=== PATIENT | female | born 2005 | race Caucasian/White ===

== ENCOUNTER → 2024-04-06 | Outpatient (CLI) | payer OTHER ==
[~2024-04-06] MED LIST: AMOX50SU PO; Bactroban22 GM TOP; CEPH250SUA PO; CODACEE120 PO; RXAMOX250S PO
[2024-04-06 13:32] LABS: Source, Urine Clean Catch
[2024-04-06 14:14] LABS: Appearance, Urine Clear (Clear); Bilirubin, Urine Neg (Neg); Blood, Urine Neg (Neg); Color, Urine Yellow (P-Yellow); Glucose Qualitative, Urine Neg (Neg); Ketones, Urine Neg (Neg); Leukocyte Esterase, Urine Neg (Neg); Nitrite, Urine Neg (Neg); Protein, Urine 1+ (Neg); Urobilinogen, Urine NORM (Normal)
== END | disposition home or self-care (01) ==
LOC: LAB 13:29 → LAB SHORT 13:29
PROVIDERS: Registered Nurse Community Health
DX: O09.30 Supervision of pregnancy with insufficient antenatal care, unspecified trimester (principal)
CPT/HCPCS: 87086

== ENCOUNTER → 2024-04-07 | Outpatient (CLI) | payer OTHER ==
[2024-04-07 19:32] LABS: BASOPHILS ABSOLUTE AUTO 0.04 K/mm3 (0.00-0.23); BASOPHILS PERCENT AUTO 0 % (0-2); EOSINOPHILS PERCENT AUTO 1 % (0-6); Hemoglobin 13.7 g/dL (11.5-16.0); IMMATURE GRAN ABSOLUTE AUTO 0.05 K/mm3 (0.00-0.10); IMMATURE GRAN PERCENT AUTO 0 % (0-1); LYMPHOCYTES ABSOLUTE AUTO 3.36 K/mm3 (0.84-5.20); LYMPHOCYTES PERCENT AUTO 27 % (21-46); MONOCYTES ABSOLUTE AUTO 0.65 K/mm3 (0.16-1.47); MONOCYTES PERCENT AUTO 5 % (4-13); Mean Corpuscular HGB 30.8 pg (26.0-34.0); Mean Corpuscular HGB Conc 35.1 g/dL (31.5-36.5); Mean Corpuscular Volume 88 fL (80-100); Mean Platelet Volume 10.7 fL (9.1-12.4); NEUTROPHILS ABSOLUTE AUTO 8.11 K/mm3 (1.96-9.15); NEUTROPHILS PERCENT AUTO 66 % (41-73); Platelet Count 343 K/mm3 (150-400); RDW Coefficient Variation 12.8 % (11.7-14.2); RDW Standard Deviation 41.1 fL (35.1-46.3); Red Blood Cell Count 4.45 M/mm3 (3.80-5.20); White Blood Cell Count 12.31 K/mm3 (4.00-11.30)
[2024-04-09 17:04] LABS: HEPATITIS B SURFACE ANTIGEN Negative (Negative)
[2024-04-10 10:35] LABS: HEPATITIS C AB CIA INTERP Negative (Negative); HEPATITIS C ANTIBODY CIA INDEX 0.05 IV
[2024-04-10 11:57] LABS: HIV 1,2 COMBO ANTIGEN/ANTIBODY Negative (Negative)
[2024-04-10 20:33] LABS: APTIMA MEDIA TYPE Urine; C. TRACHOMATIS BY TMA Negative (Negative); N. GONORRHOEAE BY TMA Negative (Negative); SPECIMEN SOURCE Urine
== END ==
LOC: LAB SHORT 17:54 → LAB 17:54
PROVIDERS: Registered Nurse Community Health
DX: Z34.92 Encounter for supervision of normal pregnancy, unspecified, second trimester (principal)
CPT/HCPCS: 84443; 86803; 87340; 87389; 87491; 87591

== ENCOUNTER → 2024-07-07 | Outpatient (CLI) | payer OTHER ==
[2024-07-07 14:33] LABS: Hematocrit 34.8 % (33.0-51.0); Hemoglobin 12.2 g/dL (11.5-16.0)
== END ==
LOC: LAB SHORT 11:36 → LAB 11:36
PROVIDERS: Registered Nurse Community Health
DX: Z34.92 Encounter for supervision of normal pregnancy, unspecified, second trimester (principal)
CPT/HCPCS: 82950; 85014; 85018

== ENCOUNTER → 2024-09-10 | Outpatient (CLI) | payer OTHER ==
[~2024-09-10] MED LIST changes: +AMOCLA875 PO
== END ==
LOC: LAB SHORT 15:45 → LAB 15:45
DX: Z34.93 Encounter for supervision of normal pregnancy, unspecified, third trimester (principal)
CPT/HCPCS: 87081; 87150

== ENCOUNTER 2024-10-07 06:21 | Inpatient (IN) | payer OTHER ==
[~2024-10-07] VITALS: Ht 170.2 cm; Wt 106.8 kg
[2024-10-07] VITALS (15 sets, daily range): BP systolic 115–145; BP diastolic 67–90
[2024-10-07] MEDS ORDERED: Misoprostol 200 MCG Tab PR PRN (06:50)
[2024-10-07] MEDS ORDERED: Oxytocin 10 Unit / ML Vial IM PRN (06:50)
[2024-10-07] MEDS ORDERED: ePHEDrine Sulfate 50 MG/ML 1ML Injection XX PRN (06:50)
[2024-10-07] MEDS ORDERED: Lactated Ringer's 1,000 ML IV PRN ×3 (06:50)
[2024-10-07] MEDS ORDERED: OXYTOCIN/RINGER'S LACTATE 500 ML IV PRN (06:50)
[2024-10-07] MEDS ORDERED: Methylergonovine Maleate 0.2MG / ML 1ML Amp IM PRN (06:50)
[2024-10-07] MEDS ORDERED: Misoprostol 200 MCG Tab BC PRN (06:50)
[2024-10-07] MEDS ORDERED: FentaNYL 2mcg/ml-Bup 0.1% Epd 250 ML EPI PRN (06:50)
[2024-10-07] MEDS ORDERED: Ondansetron HCl 2 MG / ML 2ML Vial IV PRN (06:50)
[2024-10-07] MEDS ORDERED: Carboprost Tromethamine 250 MCG/ML 1ML Amp IM PRN (06:50)
[2024-10-07] MEDS ORDERED: Acetaminophen 500 MG Tab PO PRN (06:55)
[2024-10-07] MEDS ORDERED: Calcium Carbonate 500 MG Tab Chew PO PRN (06:55)
[2024-10-07] MEDS ORDERED: Tranexamic Acid 100 ML IV PRN (06:55)
[2024-10-07] MEDS ORDERED: FentaNYL Citrate 50 MCG/ML 2 ML Injection IV PRN (07:00)
[2024-10-07 08:19] LABS: BASOPHILS ABSOLUTE AUTO 0.03 K/mm3 (0.00-0.23); BASOPHILS PERCENT AUTO 0 % (0-2); EOSINOPHILS ABSOLUTE AUTO 0.12 K/mm3 (0.00-0.68); EOSINOPHILS PERCENT AUTO 1 % (0-6); Hemoglobin 13.4 g/dL (11.5-16.0); IMMATURE GRAN ABSOLUTE AUTO 0.08 K/mm3 (0.00-0.10); IMMATURE GRAN PERCENT AUTO 1 % (0-1); LYMPHOCYTES PERCENT AUTO 21 % (21-46); MONOCYTES ABSOLUTE AUTO 0.86 K/mm3 (0.16-1.47); MONOCYTES PERCENT AUTO 6 % (4-13); Mean Corpuscular HGB 30.2 pg (26.0-34.0); Mean Corpuscular HGB Conc 34.4 g/dL (31.5-36.5); Mean Corpuscular Volume 88 fL (80-100); Mean Platelet Volume 10.7 fL (9.1-12.4); NEUTROPHILS PERCENT AUTO 71 % (41-73); Platelet Count 263 K/mm3 (150-400); RDW Coefficient Variation 12.9 % (11.7-14.2); RDW Standard Deviation 41.3 fL (35.1-46.3); Red Blood Cell Count 4.43 M/mm3 (3.80-5.20); White Blood Cell Count 13.89 K/mm3 (4.00-11.30)
[2024-10-07] MEDS ORDERED: OXYTOCIN/RINGER'S LACTATE 500 ML IV SCH (19:25)
[2024-10-07] MEDS ORDERED: Lactated Ringer's 1,000 ML IV SCH (19:25)
[2024-10-08] VITALS (40 sets, daily range): BP systolic 95–141; BP diastolic 50–87
[2024-10-08] MEDS ORDERED: Methylergonovine Maleate 0.2MG / ML 1ML Amp IM PRN (11:00)
[2024-10-08] MEDS ORDERED: Measles/Mumps/Rubella Vaccine 0.5 ML Vial SC ONE (11:00)
[2024-10-08] MEDS ORDERED: Misoprostol 200 MCG Tab PR PRN (11:05)
[2024-10-08] MEDS ORDERED: Acetaminophen/Codeine 300-30 mg PO PRN (11:05)
[2024-10-08] MEDS ORDERED: Acetaminophen 325 MG TABLET PO PRN (11:05)
[2024-10-08] MEDS ORDERED: Diphth,Pertuss(Acell),Tet Vac 0.5 ML VIAL IM ONE (11:05)
[2024-10-08] MEDS ORDERED: Oxytocin 10 Unit / ML Vial IM ONE (11:05)
[2024-10-08] MEDS ORDERED: Witch Hazel/Glycerin PADS TOP PRN (11:05)
[2024-10-08] MEDS ORDERED: Benzocaine Topical Anesthetic Spray 60GM TOP PRN (11:05)
[2024-10-08] MEDS ORDERED: Lanolin Cream TOP PRN (11:10)
[2024-10-08] MEDS ORDERED: Docusate Sodium 100 MG Cap PO PRN (11:10)
[2024-10-08] MEDS ORDERED: FLU VACC TS2024-25(6MOS UP)/PF 45 MCG/0.5 ML SYRINGE IM SCH (11:10)
[2024-10-08] MEDS ORDERED: OXYTOCIN/RINGER'S LACTATE 500 ML IV SCH (11:10)
[2024-10-08] MEDS ORDERED: Ketorolac Tromethamine 30mg Vial IV PRN (11:10)
[2024-10-08] MEDS ORDERED: Lactated Ringer's 1,000 ML IV SCH (11:10)
[2024-10-08] MEDS ORDERED: Ibuprofen 400 MG Tab PO PRN (11:10)
[2024-10-09 00:13] VITALS: BP 121/59
[2024-10-09 04:48] VITALS: BP 100/56
[2024-10-09 06:51] LABS: BASOPHILS ABSOLUTE AUTO 0.06 K/mm3 (0.00-0.23); BASOPHILS PERCENT AUTO 0 % (0-2); EOSINOPHILS ABSOLUTE AUTO 0.15 K/mm3 (0.00-0.68); EOSINOPHILS PERCENT AUTO 1 % (0-6); Hematocrit 34.7 % (33.0-51.0); Hemoglobin 12.1 g/dL (11.5-16.0); IMMATURE GRAN ABSOLUTE AUTO 0.11 K/mm3 (0.00-0.10); IMMATURE GRAN PERCENT AUTO 1 % (0-1); LYMPHOCYTES ABSOLUTE AUTO 3.39 K/mm3 (0.84-5.20); LYMPHOCYTES PERCENT AUTO 22 % (21-46); MONOCYTES ABSOLUTE AUTO 1.19 K/mm3 (0.16-1.47); MONOCYTES PERCENT AUTO 8 % (4-13); Mean Corpuscular HGB Conc 34.9 g/dL (31.5-36.5); Mean Corpuscular Volume 89 fL (80-100); Mean Platelet Volume 10.7 fL (9.1-12.4); NEUTROPHILS ABSOLUTE AUTO 10.29 K/mm3 (1.96-9.15); NEUTROPHILS PERCENT AUTO 68 % (41-73); Platelet Count 228 K/mm3 (150-400); RDW Standard Deviation 42.4 fL (35.1-46.3); White Blood Cell Count 15.19 K/mm3 (4.00-11.30)
[2024-10-09] MEDS ORDERED: Measles/Mumps/Rubella Vaccine 0.5 ML Vial SC ONE (07:50)
[2024-10-09 07:59] VITALS: BP 134/72
[2024-10-09] MEDS ORDERED: Prenatal Vit/FE Fumarate/FA 1 Tab PO SCH (09:00)
[2024-10-09 11:13] VITALS: BP 114/63
[2024-10-09] MEDS ORDERED: IBUP800 PO (11:52)
== END 2024-10-09 14:50 | disposition home or self-care (01) | DRG 807 ==
LOC: OBS 06:21 → BC 07:00
PROVIDERS: ADMIT Registered Nurse Community Health
PROC: 10E0XZZ Delivery of Products of Conception, External Approach (ICD-10-PCS; principal; 2024-10-08)
PROC: 0HQ9XZZ Repair Perineum Skin, External Approach (ICD-10-PCS; 2024-10-08)
PROC: 00HU33Z Insertion of Infusion Device into Spinal Canal, Percutaneous Approach (ICD-10-PCS; 2024-10-08)
PROC: 3E0R3BZ Introduction of Anesthetic Agent into Spinal Canal, Percutaneous Approach (ICD-10-PCS; 2024-10-08)
DX: O48.0 Post-term pregnancy (principal); Z37.0 Single live birth; Z3A.40 40 weeks gestation of pregnancy; O99.214 Obesity complicating childbirth; E66.9 Obesity, unspecified; O70.0 First degree perineal laceration during delivery; O69.89X0 Labor and delivery complicated by other cord complications, not applicable or unspecified; Z28.21 Immunization not carried out because of patient refusal; Z91.030 Bee allergy status
CPT/HCPCS: 36415; 51702; 81003; 85025; 86850; 86900; 86901; 90471; 90707; A9270; J1885; J2590; J3010; J7120